=== PATIENT | male | born 1980 | race Caucasian/White ===

== ENCOUNTER 2022-10-26 13:39 | Emergency (ER) | payer MEDICAID ==
[~2022-10-26] VITALS: Ht 177.8 cm; Wt 75.0 kg
[2022-10-26 13:45] VITALS: TEMP 98.6
--- NOTE | 2022-10-26 13:57 | NUR ---
Met with patient in regards to alcohol use and to see if patient was interested in resources for treatment options. Patient has a bed at [facility]. Patient needs medical clearance and meds to help with detox. I gave patient a card for [facility] to have them prescribe Naltrexone after treatment and my card to call me with any questions.
[2022-10-26 14:36] VITALS: BP 114/67; PULSE 64; RESP 16; O2SAT 96
[2022-10-26] MEDS ORDERED: CHLO25CA10 PO (15:53)
[2022-10-26] MEDS ORDERED: LORazepam 1 MG tablet PO ONE (15:55)
== END 2022-10-26 16:38 | disposition home or self-care (01) ==
LOC: ER 13:41
DX: F17.200 Nicotine dependence, unspecified, uncomplicated; Z79.899 Other long term (current) drug therapy
CPT/HCPCS: 99283